=== PATIENT | female | born 1945 | race Caucasian/White ===

== ENCOUNTER 2020-08-24 13:20 | Observation (INO) | payer OTHER, MEDICARE, BC, SELFPAY ==
[2020-08-24] VITALS (12 sets, daily range): BP systolic 141–189; BP diastolic 66–88; PULSE 58–69; RESP 17–18; TEMP 36.2–36.8; O2SAT 98–100
[2020-08-24] MEDS: Acetaminophen 500 MG TAB 1000 MG PO (13:42)
--- NOTE | 2020-08-24 13:45 | DI.CT_ITS ---
EXAM: CT THORACIC SPINE WO CLINICAL HISTORY: fall, thoracic pain. TECHNIQUE: Imaging Protocol: Axial computed tomography images with coronal and sagittal reformatted images were created and reviewed. CONTRAST MATERIAL: None COMPARISON: No exams were available for comparison FINDINGS: There is osteopenia but no obvious acute compression fractures in the thoracic spinal column. There is slight indentation of superior endplate of what is possibly T8. There is no listhesis. Chronic d egenerative disc disease at multiple levels is noted. No osseous lesions identified. No acute compromise of the thoracic spinal column. IMPRESSION: Subtle fracture superior endplate T8. No acute compromise of the thoracic spinal column. Report called by myself to ER provider. RADIATION DOSE DELIVERED: Total DLP DATA REPOSITORY: All CT scans at this facility are submitted to the National Radiology Data Registry (NRDR) Dose Index Registry (DIR) with the [employer] (ACR). RADIATION OPTIMIZATION: All CT scans at this facility use at least one of these dose optimization te chniques: automated exposure control; mA and/or kV adjustment per patient size (includes targeted exa ms where dose is matched to clinical indication); or iterative reconstruction.
--- NOTE | 2020-08-24 14:38 | DI.CT_ITS ---
EXAM: CT LUMBAR SPINE WO CLINICAL HISTORY: fall, lumbar pain. TECHNIQUE: Imaging Protocol: Axial computed tomography images with coronal and sagittal reformatted images were created and reviewed COMPARISON: No exams were available for comparison FINDINGS: Bones: There are no compression fracture or listhesis. Advanced multilevel disc space narrowing is noted including Modic type sub endplate marrow changes at L2-3 level.. There is no evidence of kaelyn poli hematoma. No acute disc herniation evident. IMPRESSION: 1. Chronic degenerative disc disease. No acute fractures. No listhesis. 2. No acute compromise of the lumbar spinal canal. 3. RADIATION DOSE DELIVERED: Total DLP DATA REPOSITORY: All CT scans at this facility are submitted to the National Radiology Data Registry (NRDR) Dose Index Registry (DIR) with the [employer] (ACR). RADIATION OPTIMIZATION: All CT scans at this facility use at least one of these dose optimization te chniques: automated exposure control; mA and/or kV adjustment per patient size (includes targeted exa ms where dose is matched to clinical indication); or iterative reconstruction.
--- NOTE | 2020-08-24 14:50 | ED.GENADUL_ITS ---
Discharge Plan Discharge Details Chief Complaint: Nk/Back Pain Admit Date/Time: 08/24/20 16:36 Admit Provider: Robert Olson Attending Provider: Robert Olson Primary Care Provider: Ashley Keyes ED Provider: Eden Lal Discharge Data Discharge Date/Time-TO BE ENTERED AT DEPARTURE: 08/24/20 18:08 Medical Decision Making No evidence of intra-abdominal pathology, nontender to CVA region and to abdomen Superior endplate fracture to T8, this was where patient with significant pain Secondary to intractable pain I do not feel patient is safe for discharge home She is agreeable to admission at this time I ordered blood work for admission Tylenol and 50 mcg of fentanyl She has neurologically intact Discussed CT findings with Dr. Caal, radiology, superior endplate fracture BPH without additional acute pathology Vascularly intact Differential Diagnosis Differential Diagnosis: Fracture, strain, contusion, abrasion Medical Records Medical records reviewed: Yes I reviewed the patient's medical records. Lab Data Lab results reviewed: Yes I reviewed the patient's lab results. HPI This 75-year-old female presents status post fall at work and then was bending down to replace a plug when she fell backwards. She landed on her buttocks. She denies any head injury or any additional trauma. Denies any changes in bowel or bladder or strength or sensation changes in her lower extremities denies any abdominal pain. Denies loss of consciousness or history of anticoagulation denies history of anticoagulation. Pain exacerbated with walking and movement. General Date/Time Provider Initiated Documentation: 08/24/20 13:27 . Related Data Home Medications Medication Instructions Recorded Confirmed Lactobac. rhamnosus GG-inulin 1 cap PO DAILY 08/24/20 08/24/20 alprazolam 0.5 mg PO HS PRN 08/24/20 08/24/20 aspirin 81 mg PO DAILY 08/24/20 08/24/20 atorvastatin 10 mg PO DAILY 08/24/20 08/24/20 vhlesxunqz-jgvrmieozoaos-zzkf 1 tab PO Q4-5H PRN 08/24/20 08/24/20 cephalexin 500 mg PO HS 08/24/20 08/24/20 green tea extract 375 mg PO DAILY 08/24/20 08/24/20 metoprolol tartrate See Rx Instructions .ROUTE .COMPLEX 08/24/20 08/24/20 omega-3 fatty acids [[place] 3 Fish 500 mg PO DAILY 08/24/20 08/24/20 Oil] ondansetron 8 mg PO QID PRN 08/24/20 08/24/20 potassium chloride [K-Dur] 20 meq PO DAILY 08/24/20 08/24/20 rizatriptan 10 mg PO PRN PRN 08/24/20 08/24/20 turmeric 400 mg PO DAILY 08/24/20 08/24/20 Allergies Allergy/AdvReac Type Severity Reaction Status Date / Time metronidazole [From Flagyl] AdvReac Unverified 08/24/20 13:26 sulfamethoxazole AdvReac Unverified 08/24/20 13:26 [From Bactrim] trimethoprim [From Bactrim] AdvReac Unverified 08/24/20 13:26 General Stated Complaint: Nk/Back Pain MAKENZIE: 3 Review of Systems Narrative: Review of systems obtained x7 aside from where indicated in HPI [facility] Medical History (Updated 08/24/20 @ 22:56 by Robert Olson) Ductal carcinoma in situ (DCIS) of breast Hyperlipidemia Migraine headache SSS (sick sinus syndrome) Surgical History (Updated 08/24/20 @ 22:50 by Robert Olson) S/P bilateral mastectomy Status post placement of cardiac pacemaker Social History Smoking/Tobacco Use Status: Never Smoking risk assessment performed?: Yes Alcohol Intake: never Drug use: Never Substance use type: does not use Do you feel safe at home: Yes Do you feel safe in your relationship?: Yes History History 3 Para 1 Hx # Term Pregnancies 1 Multiple births Hx # Pregnancies Ectopic pregnancies AB induced Hx Number of Living Children 1 AB spontaneous 2 Exam Const General: cooperative and no acute distress Orientation: oriented x3 HENMT Head: normal to inspection Eyes Pupils: PERRL Neck Other: No midline tenderness Chest Chest: normal inspection of the chest Resp Effort & Inspection: normal respiratory effort Auscultation: clear to auscultation bilaterally Cardio Rate: regular rate Rhythm: regular rhythm GI Other: No CVA tenderness or abdominal tenderness on exam No abdominal bruit or pulsatile mass Back/Spine/Pelvis Back: no CVA tenderness Skin General skin exam: no rashes or lesions noted Full body images: 1. Tenderness with palpation, no visible sign of trauma, no crepitus Neuro General: patient alert and patient oriented x3 Other: GCS 15, alert and oriented x4, strength and sensation intact distally to all 4 extremities Course Vital Signs Vital signs: Vital Signs Temperature 36.2 C L 08/24/20 13:25 Pulse 63 08/24/20 13:25 Respiratory Rate 18 08/24/20 13:25 Blood Pressure 189/88 H 08/24/20 13:25 Pulse Oximetry 99 08/24/20 13:25 Temperature 36.2 C L 08/24/20 13:25 Temperature Source Skin 08/24/20 13:25 Pulse 63 08/24/20 13:25 Respiratory Rate 18 08/24/20 13:25 Respiratory Effort Non-Labored 08/24/20 13:28 Blood Pressure 189/88 H 08/24/20 13:25 Blood Pressure Position Supine 08/24/20 13:25 Pulse Oximetry 99 08/24/20 13:25 Oxygen Delivery Method Room Air 08/24/20 13:25 Oxygen Flow Rate 0 08/24/20 13:25 Pain Level 10 08/24/20 13:42
--- NOTE | 2020-08-24 16:37 | W.PM.HP.N ---
Date of service: 08/24/20 Time of Service: 16:37 Assessment and Plan Assessment and plan (1) Closed fracture of T8 vertebra: Status: Acute Assessment and plan: admit for observation, narcotic and NSAID analgesics, muscle relaxants and antiemetics, topical lidocaine patches. consult P.T. in the a.m. for early mobilization. 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 She was at her desk and bent over and tripped and fell landing on her back and buttocks. There was no loss of consciousness. Immediately she was in pain over her mid to lower back and was having trouble ambulating. She was brought to the ER at [facility] where CT scans of her thoracic and lumbar spine were peformed and revealed T8 superior endplate compression fracture. The ER personnel tried to control her pain w/ narcotic analgesics (fentanyl) and NSAIDS (ketorolac) but when she could not ambulate it was decided to admit her overnight for pain control. Review of Systems All systems reviewed & are unremarkable except as noted in HPI and below Constitutional Constitutional: Denies weakness Musculoskeletal Musculoskeletal: Reports as per HPI and Denies tingling Neurologic Neurologic: Denies tingling, Denies paresthesias and Denies weakness [facility] Medical History (Updated 08/24/20 @ 22:56 by Robert Olson) Ductal carcinoma in situ (DCIS) of breast Hyperlipidemia Migraine headache SSS (sick sinus syndrome) Surgical History (Updated 08/24/20 @ 22:50 by Robert Olson) S/P bilateral mastectomy Status post placement of cardiac pacemaker Social History Smoking/Tobacco Use Status: Never Smoking risk assessment performed?: Yes Alcohol Intake: never Drug use: Never Substance use type: does not use Do you feel safe at home: Yes Do you feel safe in your relationship?: Yes History History 3 Para 1 Hx # Term Pregnancies 1 Multiple births Hx # Pregnancies Ectopic pregnancies AB induced Hx Number of Living Children 1 AB spontaneous 2 Meds Home Medications and Allergies Allergies Allergy/AdvReac Type Severity Reaction Status Date / Time metronidazole [From Flagyl] AdvReac Unverified 08/24/20 13:26 sulfamethoxazole AdvReac Unverified 08/24/20 13:26 [From Bactrim] trimethoprim [From Bactrim] AdvReac Unverified 08/24/20 13:26 Home Medications Medication Instructions Recorded Confirmed Type Lactobac. rhamnosus GG-inulin 1 cap PO DAILY 08/24/20 08/24/20 History alprazolam 0.5 mg PO HS PRN 08/24/20 08/24/20 History aspirin 81 mg PO DAILY 08/24/20 08/24/20 History atorvastatin 10 mg PO DAILY 08/24/20 08/24/20 History cawisdgtrk-vyuihnsdqyppy-kldy 1 tab PO Q4-5H PRN 08/24/20 08/24/20 History cephalexin 500 mg PO HS 08/24/20 08/24/20 History green tea extract 375 mg PO DAILY 08/24/20 08/24/20 History metoprolol tartrate See Rx Instructions .ROUTE .COMPLEX 08/24/20 08/24/20 History omega-3 fatty acids [[place] 3 Fish 500 mg PO DAILY 08/24/20 08/24/20 History Oil] ondansetron 8 mg PO QID PRN 08/24/20 08/24/20 History potassium chloride [K-Dur] 20 meq PO DAILY 08/24/20 08/24/20 History rizatriptan 10 mg PO PRN PRN 08/24/20 08/24/20 History turmeric 400 mg PO DAILY 08/24/20 08/24/20 History Exam Narrative Exam Narrative: Elderly female lying on a guerney in the ER. A&Ox3, comfortable as long as she is not moving around HEENT: unremarkable Neck: supple, nontender, normal ROM Lungs: clear Heart: RRR w/o murmur, rub or gallops Abd: soft, nontender, normal bowel sounds, no organomegaly Extremities: normal ROM and strength. normal sensation to light touch, normal DTR Spine: tender over lower thoracic and upper lumbar areas including paralumbar muscles; cervical spine is nontender Results Labs Result diagrams: 08/24/20 16:53 08/24/20 16:53 Last Vital Signs Temp 36.2 C L 08/24/20 13:25 Pulse 63 08/24/20 13:25 Resp 18 08/24/20 13:25 BP 189/88 H 08/24/20 13:25 Pulse Ox 99 08/24/20 13:25 COVID-19 Screening Have you, or household traveled for leisure in last 14 days?: No Had IN PERSON contact w/suspected or confirmed C-19 person: No
[2020-08-24 17:03] LABS: Abs Immature Grans 0.04 10^3/uL (0.0-0.06); Absolute Basophil Count 0.03 10^3/uL (0.0-0.2); Absolute Eosinophil Count 0.05 10^3/uL (0.0-0.7); Absolute Lymphocyte Count 1.32 10^3/uL (1.2-3.4); Absolute Monocyte Count 0.39 10^3/uL (0.1-0.8); Absolute Neutrophil Count 6.09 10^3/uL (1.2-6.7); Basophils % 0.4; Eosinophils % 0.6; HCT 42.1 % (36.0-46.0); HGB 14.4 g/dL (11.2-15.7); Immature Grans % 0.5; Lymphocytes % 16.7; MCHC 34.2 % (32.0-36.0); MCV 90.7 fL (80-95); Monocytes % 4.9; Neutrophils % 76.9; Nucleated RBC 0 %; Platelet Count 218 10^3/uL (130-400); RBC 4.64 10^6/uL (3.93-5.22); RDW-SD 39.8 fL; WBC 7.92 10^3/uL (4.4-10.8)
[2020-08-24] MEDS: traMADol 50 MG TAB PO ×2 (17:08→21:56)
[2020-08-24 17:09] LABS: Source Nasal/Nares
[2020-08-24 17:10] LABS: Anion Gap 9.3 mmol/L (3-11); BUN 12 mg/dL (7-18); CO2 26.7 mmol/L (21.0-32.0); CREATININE 0.6 mg/dL (0.55-1.02); Chloride 105 mmol/L (98-107); Glucose 91 mg/dL (74-106); Sodium 141 mmol/L (136-145)
[2020-08-24 17:18] LABS: Bilirubin Negative (Negative); Blood Negative (Negative); Clarity Clear (Clear); Glucose Negative (Negative); Ketones 40 mg/dL (Negative); Leukocyte Esterase Negative (Negative); Nitrite Negative (Negative); Urobilinogen 0.2 EU/dL (Up TO 0.2)
[2020-08-24] MEDS: Ketorolac 15 MG/ML VIAL IVP (18:17)
[2020-08-24] MEDS: Normal Saline Flush 10 ML SYR IVP (18:17)
[2020-08-24] MEDS: Ondansetron 4 MG/2 ML VIAL IVP (18:23)
[2020-08-24] MEDS: Calcitonin-Salmon, Synthetic 3.7 ML BTL NS (18:47)
[2020-08-24] MEDS: Lidocaine 5% Patch 2 PATCH TP (19:58)
[2020-08-24] MEDS: Metoprolol 50 MG TAB PO (20:57)
[2020-08-24 21:57] LABS: COVID-19 PCR Negative (Negative)
[2020-08-25] MEDS: Methocarbamol 750 MG TAB PO ×4 (02:22→21:28)
[2020-08-25] MEDS: Ketorolac 15 MG/ML VIAL IVP ×4 (02:22→21:25)
[2020-08-25] MEDS: Normal Saline Flush 10 ML SYR IVP ×3 (02:22→21:31)
[2020-08-25 07:25] VITALS: BP 135/74; PULSE 61; RESP 18; TEMP 36; O2SAT 96
[2020-08-25] MEDS: Calcitonin-Salmon, Synthetic 3.7 ML BTL NS (08:29)
[2020-08-25] MEDS: Potassium Chloride 20 MEQ TABCR PO (08:29)
[2020-08-25] MEDS: Aspirin 81 MG CHEW PO (08:30)
[2020-08-25] MEDS: Metoprolol 50 MG TAB PO ×2 (08:30→21:28)
[2020-08-25] MEDS: Cholecalciferol (Vitamin D3) 1,000 UNIT TAB 2000 UNITS PO (08:30)
--- NOTE | 2020-08-25 09:02 | PDOC.CMIN ---
- If Service Date Differs Date of service: 08/25/20 Time of Service: 09:02 Care Management Initial Assess REASON FOR HOSPITALIZATION:: Closed fracture of T8 vertebra PAST MEDICAL HISTORY/PAST SURGICAL HISTORY:: Medical History (Updated 08/24/20 @ 22:56 by Robert Olson). Ductal carcinoma in situ (DCIS) of breast. Hyperlipidemia. Migraine headache. SSS (sick sinus syndrome). Surgical History (Updated 08/24/20 @ 22:50 by Robert Olson). S/P bilateral mastectomy. Status post placement of cardiac pacemaker PREVIOUS FUNCTIONAL STATUS/SOCIAL/FAMILY SUPPORTS:: Eleanor lives alone in a town house in [place] 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 Eleanor has one daughter and one grandson who is a paraplegic. She is independent and remains active, skiing in winter and biking in warmwer weather. CURRENT FUNCTIONAL STATUS:: Eleanor was sitting up in bed when CM met with her. She was pleasant and engaged readily with CM. Eleanor shared that she had been working in the [facility] of [employer] yesterday when she lost her balance and fell. She stated that she feels very fortunate that she did not fracture a hip or sustain a more serious injury. Eleanor verbalized that she does not feel that she will require any services at discharge, however, her needs will be evaluated on an ongoing basis. ADVANCE DIRECTIVES:: none on file Has patient been provided with info about the portal/API?: Yes Did the patient sign up for the portal?: No CODE STATUS:: Full Code INSURANCE COVERAGE / FINANCIAL ISSUES:: Medicare. BC BS CURRENT HOME/COMMUNITY SERVICES/EQUIPMENT:: none PRIMARY CARE PHYSICIAN:: Ashley Keyes POTENTIAL DISCHARGE NEEDS:: Follow up with PCP and discharge plan of care PATIENT/FAMILY EDUCATION NEEDS:: Review of discharge instructions and follow up plan, limitations, Ask Me Three TRANSPORTATION:: via private vehicle with family PLAN:: Eleanor will likely be discharged home with no new services. She will followup with her PCP and discharge plan of care and transport with family. CM will continue to support Eleanor and assess for discharge planning needs.
--- NOTE | 2020-08-25 10:03 | PT.INIE ---
Date of service: 08/25/20 Time of Service: 10:03 PT Notes Visit Reasons: BACK PAIN; T8 FRACTURE Physical Therapy Inpatient Initial Evaluation Date: 08/25/2020 Referring Doctor: Robert Olson MD PT Orders: PT CONSULT: Safety consult for D/C Precautions: Fall. Standard. Activity as tolerated. Patient Profile/Admitting Diagnosis: Eleanor is a 75-year-old female who presented to the ED on 08/24/2020 with back pain sustained from a mechanical fall while at work. She is diagnosed with subtle superior endplate fracture of the 8th thoracic vertebra with referral to physical therapy for safety assessment for discharge. PMHX: Medical History (Updated 08/24/20 @ 22:56 by Robert Olson) Ductal carcinoma in situ (DCIS) of breast Hyperlipidemia Migraine headache SSS (sick sinus syndrome) Surgical History (Updated 08/24/20 @ 22:50 by Robert Olson) S/P bilateral mastectomy Status post placement of cardiac pacemaker Social History/Home Situation: Lives alone in a private home in [place], [place] with one step to enter. She has another flight of steps to the second floor of her house where her bedroom and bathroom are. However, if she needs to she can stay in the guest room on the first floor where she also has a bathroom. 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 Equipment Owned/DME: None Subjective: Eleanor considers herself athletic and believes that the recent fall she had was purely mechanical. She reported being lightheaded earlier when she went to the bathroom, she states that she has a tendency for her blood pressure to go down. She complains of 6/10 pain in the left lower lumbar and left hip area that is aggravated with movement. She explains that when she fell her L hip/gluteal areas were mostly the part she hit. She reports increase in pain with bending. Objective: General Observation: Supine in bed with HOB elevated about 45 degrees. IV access in the right UE. Anti-thromboembolic pumps in bilateral legs. Mental Status: Alert and oriented x4 Pain: 6/10 in left lumbar/pelvic area ROM: Right Upper Extremity: Shoulder Flexion WFL. Shoulder abduction WFL. Elbow flexion WFL. Wrist flexion WFL. Opening and closing of hand WFL. Left Upper Extremity: Shoulder Flexion WFL. Shoulder abduction WFL. Elbow flexion WFL. Wrist flexion WFL. Opening and closing of hand WFL. Right Lower Extremity: Hip flexion WFL. Hip abduction WFL. Knee flexion WFL. Ankle dorsiflexion WFL. Ankle plantarflexion WFL. Left Lower Extremity: Hip flexion allows patient to sit on edge of bed but with pain complaint of 6/10. Hip abduction allows patient to slide right thigh onto the edge of bed about 45 degrees but with 6/10 pain in the right hip and lumbar area. Knee flexion WFL. Ankle dorsiflexion WFL. Ankle plantarflexion WFL. Strength: Right Upper Extremity: Shoulder flexors 5/5. Shoulder abductors 5/5. Elbow flexors 5/5. Elbow extensors 5/5. Residency Director strong. Left Upper Extremity: Shoulder flexors 5/5. Shoulder abductors 5/5. Elbow flexors 5/5. Elbow extensors 5/5. Residency Director strong. Right Lower Extremity: Hip flexors 5/5. Hip abductors 5/5. Knee flexors 5/5. Knee extensors 5/5. Ankle dorsiflexors 5/5. Ankle plantarflexors 5/5. Left Lower Extremity: Hip flexors 3-/5. Hip abductors 3-/5. Knee flexors 4-/5. Knee extensors 4-/5. Ankle dorsiflexors 5/5. Ankle plantarflexors 5/5. Sensation: Intact as to pain and pressure on bilateral lower extremities. Bed Mobility/Transfers: Rolling standby assist Supine to sit contact-guard assist with HOB at 30 degrees Sit to supine standby assist with pain reported 6/10 pain mostly on the left lumbar area Sit to stand standby assist Stand to sit standby assist Bed to chair standby assist Chair to bed standby assist Gait: Guided patient through level surface ambulation of 40 feet using front wheeled walker with full weight bearing requiring only standby assist with complaint of 6/10 pain in the left lumbar/pelvic area resulting to significantly decreased gait speed. Antalgic gait. Steps slow and cautious. Balance: Static Sitting: Normal Dynamic Sitting: Normal Static Standing: Fair Dynamic Standing: Fair Special Tests: Mobility Limitations Standardized Measure [facility] AM-PAC 6 clicks Basic Mobility Inpatient Short Form: Raw Score: 18 CMS Score: 47% deficit Informed Consent/Education: Patient instructed in purpose of PT consult and plan of care. Assessment: Eleanor requires the use of a front wheeled walker to increase tolerance to mobility ADL performance and reduce fall risk, pain in the left lumbar and hip area and due to recent fall, feelings of weakness, and increased risk for falls due to admitting diagnoses. With the use of a front wheeled walker she may be able to manage at home alone but she will require assistance with bathing, dressing, and drop clipper. Will coordinate with hospitalist regarding the benefit of a TLSO brace in order to minimize pain complaint and allow for more independent performance of transfers and ambulation. Patient presents with clinical signs and symptoms consistent with current/admitting diagnoses that have resulted to mobility limitations, gait instability, generalized weakness, and impairment of motor control as demonstrated by the following impairment level findings: 1. Decreased strength to right LE major muscle groups 2. Impaired sitting/standing balance 3. Impaired activity tolerance 4. Limitation of joint range of motion in right hip and trunk Impairments are contributing to the following functional limitations: 1. Increased dependence with transfers 2. Inability to safely ambulate without assistive device 3. Increase completion time for mobility ADL performance 4. Increased fall risk 5. Inability to negotiate steps alone safely Patient is assessed as a 22653 moderate complexity based on the following: History: 75-year-old female with impairment level findings, functional limitations, and past medical history as indicated above Examination: Demonstrable impairment in strength, balance, and mobility level with underlying impairments and functional limitations as documented above Presentation: Evolving Decision Makin moderate complexity Goals: Goals X1 week 1. Supine-Sit independent 2. Sit-Supine independent 3. Sit-Stand independent 4. Stand-Sit independent 5. Bed-Chair independent 6. Chair-Bed independent 7. Independent gait on level surface with use of front wheeled walker for at least 300 feet without report of pain nor dyspnea 8. Independent stair negotiation while holding onto bilateral rails for at least 10 steps without report of pain nor dyspnea 9. Good static and dynamic standing balance/tolerance Plan of Care/Treatment Plan: 1-2x/day, 7 days/week x 1 week. Plan of care has been reviewed with the APPLIANCE INSTALLER providing the service under Physical Therapy direction. Initiate Physical Therapy intervention for strengthening, bed mobility, transfers, gait, stairs, balance training, use of assistive device. DISCHARGE RECOMMENDATIONS: Short-term rehab stay versus home health PT/OT. TREATMENT CODE/TIME: 79669 x25 minutes, 39663 x 14 minutes beginning at 10:03 AM. Thank you for the opportunity to participate in the care of this patient. Luli Gaviria PT, DPT, CLT [facility] [place], [place]
--- NOTE | 2020-08-25 13:44 | CHAPLAIN ---
Eleanor works for [employer], in the [place] office but was here in [facility] yesterday to meet some clients she'll be working and wanted to meet in person. While in the [facility] office, Eleanor fell and suffered a T8 fracture. She is uncomfortable at times, but the pains med help, she said. Eleanor has been in touch with her daughter in [place] and hopes to go home soon. Some [facility] coworkers have offered to drive her back to [place]. Eleanor said she is usually very active and is worried about this injury slowing her down and keeping her from biking and other activities she likes.
--- NOTE | 2020-08-25 14:00 | PT.INTREAT ---
Date of service: 08/25/20 Time of Service: 15:29 PT Notes Visit Reasons: BACK PAIN; T8 FRACTURE Inpatient Physical Therapy Treatment Note [facility] Date: 08/25/2020 PRECAUTIONS: Fall, back pain SUBJECTIVE: Eleanor reports that she is having LBP with any position or movements out of bed. She is willing to try the TLSO brace. At the end of the PT session, patient reports that she is having anxiety and feels trapped in the brace, and would like to take it off and lie down. OBJECTIVE: Patient education on donning/doffing TLSO brace, as well as making adjustments. PAIN: Patient c/o LBP with movement and transfers, although indicates that it is improved while wearing TLSO brace. BED MOBILITY/TRANSFERS Supine-sit: SBA Sit-supine: SBA Sit-stand: SBA Stand-sit: SBA Bed-Chair: SBA Chair-bed: SBA GAIT Assistive Device: FWW Weight bearing: Full Assist: SBA Distance: 40' ASSESSMENT: Patient was limited by pain and anxiety this afternoon. She was able to tolerate gait training with FWW support and reports improvement in pain symptoms with TLSO in place. PLAN: Continue with gait and transfer training as well as continued patient education in use of brace and donning/doffing techniques. TREATMENT CODE/TIME: 25 minutes; 54280 x2 (14:00)
[2020-08-25] MEDS: Ondansetron 4 MG/2 ML VIAL IVP (15:28)
[2020-08-25 15:34] VITALS: BP 169/62; PULSE 60; RESP 17; TEMP 36.7; O2SAT 98
--- NOTE | 2020-08-25 16:02 | PGE_ITS ---
Date of Service Date of service: 08/25/20 Time of Service: 16:02 Assessment and Plan Assessment and plan (1) Closed fracture of T8 vertebra: Status: Acute Assessment and plan: continue observation status, however if she does not improve in her mobility by tomorrow morning then she will have to be made an acute inpatient. Hopefully w/ the changes I made from prn muscle relaxers and prn NSAID's to scheduled dosing, she will improve. I also had pharmacy give her Pamidronate. Apparently this caused her nausea but hopefully will help w/ her spine fracture and osteoporosis. I also have put her on miacalcin spray. Qualifiers: Encounter type: initial encounter Fracture morphology: wedge compression Qualified Code(s): S22.060A - Wedge compression fracture of T7-T8 vertebra, initial encounter for closed fracture Subjective Subjective Interval history since last seen: Patient is very anxious, tearful this afternoon. She has been in pain but has been reluctant to call the nurses for pain medications. P.T. tried to fit her w/ TLSO but this was extremely uncomfortable for her. I have changed her pain medications to scheduled for her Skelaxin and her Toradol but will keep her Tramadol on a prn basis. She says that the lidocaine patches really helped last night and this will be renewed tonight. She is worried how she is going to cope when she goes home and is worried about how she is going to get home to [place] and what she will do when she is home if she has severe pain. She is also worried about developing a DVT d/t her decr. mobility. I initially did not put her enoxaparin d/t using ketorolac and thought that she would not become bed bound, however, I have added the enoxaparin to allay her concerns for DVT although she has SCD's on. Exam Narrative Exam Narrative: Tearfuly elderly female lying in bed on her left side w/ the room darkened and the shades pulled down, Back is tender mostly over the lower parathoracic and paralumbar muscles. Negative SLR. Objective Last Vital Signs Temp 36.7 C 08/25/20 15:34 Pulse 60 08/25/20 15:34 Resp 17 08/25/20 15:34 BP 169/62 H 08/25/20 15:34 Pulse Ox 98 08/25/20 15:34 Laboratory Results - last 24 hr 08/24/20 08/24/20 08/24/20 16:53 16:53 17:05 WBC 7.92 RBC 4.64 Hgb 14.4 Hct 42.1 MCV 90.7 MCH 31.0 MCHC 34.2 RDW 12.0 Plt Count 218 MPV 10.0 Immature Gran % 0.5 Neutrophils % 76.9 Lymphocytes % 16.7 Monocytes % 4.9 Eosinophils % 0.6 Basophils % 0.4 Nucleated RBC % 0 Absolute Neutrophils 6.09 Absolute Lymphocytes 1.32 Absolute Monocytes 0.39 Absolute Eosinophils 0.05 Absolute Basophils 0.03 Sodium 141 Potassium 4.0 Chloride 105 Carbon Dioxide 26.7 Anion Gap 9.3 BUN 12 Creatinine 0.6 Estimated GFR/1.73 m2 >= 60.00 Glucose 91 Calcium 9.0 Urine Color Urine Clarity Urine pH Ur Specific [place] Urine Protein Urine Ketones Urine Blood Urine Nitrite Urine Bilirubin Urine Urobilinogen Ur Leukocyte Esterase Urine Glucose COVID-19 Source Nasal/nares SARS-CoV-2 (PCR) Negative 08/24/20 17:11 WBC RBC Hgb Hct MCV MCH MCHC RDW Plt Count MPV Immature Gran % Neutrophils % Lymphocytes % Monocytes % Eosinophils % Basophils % Nucleated RBC % Absolute Neutrophils Absolute Lymphocytes Absolute Monocytes Absolute Eosinophils Absolute Basophils Sodium Potassium Chloride Carbon Dioxide Anion Gap BUN Creatinine Estimated GFR/1.73 m2 Glucose Calcium Urine Color Yellow Urine Clarity Clear Urine pH 6.0 Ur Specific [place] 1.020 Urine Protein Negative Urine Ketones 40 H Urine Blood Negative Urine Nitrite Negative Urine Bilirubin Negative Urine Urobilinogen 0.2 Ur Leukocyte Esterase Negative Urine Glucose Negative COVID-19 Source SARS-CoV-2 (PCR)
[2020-08-25] MEDS: Enoxaparin 40 MG/0.4 ML SYR SC (17:15)
[2020-08-25] MEDS: Atorvastatin 10 MG TAB PO (17:15)
[2020-08-25 21:05] VITALS: BP 169/83; PULSE 65; RESP 17; TEMP 36.2; O2SAT 98
[2020-08-25] MEDS: Lidocaine 5% Patch 2 PATCH TP (21:27)
[2020-08-25] MEDS: Calcium Carbonate 1.5 GM TAB PO (21:28)
[2020-08-25] MEDS: Zolpidem 6.25 MG TABCR PO (21:28)
[2020-08-25] MEDS: Pantoprazole 40 MG TABCR PO (21:28)
[2020-08-25] MEDS: Cephalexin 500 MG CAP PO (21:30)
[2020-08-25] MEDS: Docusate Sodium 100 MG CAP PO (21:30)
[2020-08-26] MEDS: Ketorolac 15 MG/ML VIAL IVP ×4 (03:58→22:07)
[2020-08-26] MEDS: Normal Saline Flush 10 ML SYR IVP ×5 (03:59→22:10)
[2020-08-26 07:05] LABS: Anion Gap 7.1 mmol/L (3-11); BUN 17 mg/dL (7-18); CO2 26.9 mmol/L (21.0-32.0); CREATININE 0.6 mg/dL (0.55-1.02); Calcium 8.6 mg/dL (8.5-10.1); Chloride 106 mmol/L (98-107); Glucose 83 mg/dL (74-106); Potassium 4.3 mmol/L (3.5-5.1); Sodium 140 mmol/L (136-145)
[2020-08-26 07:48] VITALS: BP 148/89; PULSE 100; RESP 17; TEMP 36.5; O2SAT 97
[2020-08-26] MEDS: Calcium Carbonate 1.5 GM TAB PO ×2 (08:19→20:26)
[2020-08-26] MEDS: Potassium Chloride 20 MEQ TABCR PO (08:19)
[2020-08-26] MEDS: Aspirin E.C. 81 MG TABEC PO (08:19)
[2020-08-26] MEDS: Cholecalciferol (Vitamin D3) 1,000 UNIT TAB 2000 UNITS PO (08:19)
[2020-08-26] MEDS: Atorvastatin 10 MG TAB PO (08:20)
[2020-08-26] MEDS: Docusate Sodium 100 MG CAP PO ×2 (08:20→14:21)
[2020-08-26] MEDS: Metoprolol 50 MG TAB PO ×2 (08:20→22:06)
[2020-08-26] MEDS: Omega-3 Fatty Acids 1000 MG CAP PO (08:20)
[2020-08-26] MEDS: Calcitonin-Salmon, Synthetic 3.7 ML BTL NS (08:44)
[2020-08-26] MEDS: traMADol 50 MG TAB PO (08:50)
[2020-08-26 10:08] VITALS: PULSE 62
[2020-08-26] MEDS: Methocarbamol 750 MG TAB PO ×3 (10:11→22:07)
--- NOTE | 2020-08-26 13:33 | PDOC.CMPRO ---
- If Service Date Differs Date of service: 08/26/20 Time of Service: 13:33 Care Management Progress Note S/O: Eleanor was sitting up in bed when CM met with her. She was pleasant and receptive to conversation. Eleanor shared that she would be staying overnight and going home in the morning. She does not have transportation today and feels she needs another day to get her pain under control and to feel safer with ambulation and transfers as she lives alone and has no help available. Cm will continue to follow. A: Eleanor is a 75 year old woman admitted on 08/24/20 with a fracture of T-8 P:Eleanor will likely be discharged home with no new services. She will followup with her PCP and discharge plan of care and transport with a friend. CM will continue to support Eleanor and assess for discharge planning needs.
--- NOTE | 2020-08-26 13:42 | PT.INTREAT ---
Date of service: 08/26/20 Time of Service: 11:20 PT Notes Visit Reasons: BACK PAIN; T8 FRACTURE Inpatient Physical Therapy Treatment Note [facility] Date: 08/26/2020 PRECAUTIONS: Fall, back pain SUBJECTIVE: Eleanor reports that she is feeling much better today. She has found the TLSO brace to be helpful, and helps with pain management. OBJECTIVE: Continued patient education on donning/doffing TLSO brace, as well as making adjustments. PAIN: No c/o pain BED MOBILITY/TRANSFERS Supine-sit: I Sit-stand: I Stand-sit: I Bed-Chair: I Chair-bed: I GAIT Assistive Device: FWW Weight bearing: Full Assist: S Distance: 100' STAIRS: Up/down 3x4 and 2x6 using B rails and a step-over pattern, independently. ASSESSMENT: Patient demonstrates an improvement with mobility with transfers and gait today versus yesterday. She was able to tolerate a progression in gait distance and demonstrates independence with stair negotiation, transfers and bed mobility at this time. PLAN: Discharge to home with TLSO brace for comfort and support, when medically ready, per MD. TREATMENT CODE/TIME: 30 minutes; 02088, [id number] (11:20)
[2020-08-26] MEDS: Milk of Magnesia 30 ML CUP PO (14:23)
[2020-08-26 14:55] VITALS: BP 145/76; PULSE 64; RESP 16; TEMP 36.5; O2SAT 97
--- NOTE | 2020-08-26 15:28 | PGE_ITS ---
Date of Service Date of service: 08/26/20 Time of Service: 09:00 Assessment and Plan Assessment and plan (1) Closed fracture of T8 vertebra: Status: Acute Assessment and plan: cont. Robaxin 750 mg tid, ketorolac 15 mg IV q6h (only getting total of 6 doses to limit impact on her renal fxn), cont. lidoderm patches; use tramadol prn. Qualifiers: Encounter type: initial encounter Fracture morphology: wedge compression Qualified Code(s): S22.060A - Wedge compression fracture of T7-T8 vertebra, initial encounter for closed fracture Subjective Subjective Interval history since last seen: Back pain is better controlled. I visited the patient this a.m. after she had taken herself to the bathroom using a FWW. Her balance appears to be good. Her pain is improving although still present along her left mid to lower back. No radiating pain in the legs. She received pamidronate injection yesterday. She is on miacalcin nasal spray along w/ vitamin D and calcium citrate. She is receiving lidoderm patches and scheduled doses of Skelaxin and toradol. Exam Narrative Exam Narrative: Thin elderly female who appears happier today. While she would like to go home she indicated that she has no way to get home today to [place] but will have a ride in the morning. She indicated that she slept well and she is more cheerful today Back is less tender to palpation. Only mild tenderness over her right mid to lower paraspinal areas (lower thoracic and upper lumbar). Patient is seen walking w/ FWW independently. Objective Last Vital Signs Temp 36.5 C 08/26/20 07:48 Pulse 62 08/26/20 10:08 Resp 17 08/26/20 07:48 BP 148/89 H 08/26/20 07:48 Pulse Ox 97 08/26/20 07:48 Laboratory Results - last 24 hr 08/26/20 06:15 Sodium 140 Potassium 4.3 Chloride 106 Carbon Dioxide 26.9 Anion Gap 7.1 BUN 17 Creatinine 0.6 Estimated GFR/1.73 m2 >= 60.00 Glucose 83 Calcium 8.6
--- NOTE | 2020-08-26 15:59 | PHACLINREV_ITS ---
Pharmacy Admission Review - Admission Clinical Review (Last Updated 08/24/20 @ 22:50 by Robert Olson) Closed fracture of T8 vertebra (Acute) metronidazole [From Flagyl] Adverse Reaction (Unverified 08/24/20 13:26) sulfamethoxazole [From Bactrim] Adverse Reaction (Unverified 08/24/20 13:26) trimethoprim [From Bactrim] Adverse Reaction (Unverified 08/24/20 13:26) Height 5 ft 3 in Weight 66.8 kg SPINE T8 FRACTURE S/P FALL - Comments Comments/Follow Ups: Have adjusted meds for pain control (Scheduled Ketorolac, Methocarbamol, Lidoderm patches)...and as needed meds Tramadol. Slept better with Ambien, ambulating with walker, Care management trying to help her get a comfortable ride home, her car is parked here, as her fall was while working in the area. May not be able to drive herself home. Will be discharged with a TLSO brace - Renal Dosing Renal Dosing: BUN 17 mg/dL (7-18) 08/26/20 06:15 Creatinine 0.6 mg/dL (0.55-1.02) 08/26/20 06:15 Medications needing adjustments: Reviewed (CrCl~49ml/min) - Anticoagulation Anticoagulation: Hgb 14.4 g/dL (11.2-15.7) 08/24/20 16:53 Hct 42.1 % (36.0-46.0) 08/24/20 16:53 Plt Count 218 10^3/uL (130-400) 08/24/20 16:53 Creatinine 0.6 mg/dL (0.55-1.02) 08/26/20 06:15 DVT Prohphylaxis: Reviewed Medications: Enoxaparin (Lovenox 40mg) - Opiate Usage Evaluate Pain Scale/Pains Meds: Reviewed (Pain 3/10 (Tramadol-only using ~one dose/day)) Scheduled Bowel Reg ordered if on Opiates?: Yes (Docusate ALEXA,others prn) - Relevant Labs Sodium 140 mmol/L (136-145) 08/26/20 06:15 Potassium 4.3 mmol/L (3.5-5.1) 08/26/20 06:15 Chloride 106 mmol/L (98-107) 08/26/20 06:15 Electrolytes, C-Reactive P, ESR: Reviewed - DM Control DM Control: Glucose 83 mg/dL (74-106) 08/26/20 06:15 Insulin Dosing: N/A - Heart Failure/CT EF%, TAMMIE's, B-Blockers, Diuretics: Reviewed (Metoprolol) - BP Control BP Control: Blood Pressure 145/76 Blood Pressure 148/89 If elevated: Reviewed - IV to PO Switch IV Medications: Reviewed (Toradol 15mg IV q6h, Zofran IV (also has ODT Zofran)) - Home Meds Home Med List reviewed: Reviewed (Not sure why patient takes maintenance Cephalexin 500mg daily) Relevent Home Meds Not ordered & why?: Ugo Coroneliptgisell (patient lives in [place], [place]...external med history not avail) - Comments Comments/Follow Ups: Patient has pacemaker for sick sinus syndrome
[2020-08-26] MEDS: Enoxaparin 40 MG/0.4 ML SYR SC (16:26)
[2020-08-26] MEDS: Lidocaine 5% Patch 2 PATCH TP (20:27)
[2020-08-26 22:01] VITALS: BP 153/78; PULSE 66; RESP 17; TEMP 36.4; O2SAT 97
[2020-08-26] MEDS: Zolpidem 6.25 MG TABCR PO (22:06)
[2020-08-26] MEDS: Cephalexin 500 MG CAP PO (22:06)
[2020-08-26] MEDS: Pantoprazole 40 MG TABCR PO (22:07)
[2020-08-26 23:21] VITALS: BP 131/74; PULSE 60; RESP 18; TEMP 36.4; O2SAT 95
[2020-08-27 07:25] LABS: Platelet Count 194 10^3/uL (130-400)
[2020-08-27 07:40] VITALS: BP 158/80; PULSE 61; RESP 17; TEMP 36.9; O2SAT 96
[2020-08-27 07:45] LABS: Anion Gap 6.8 mmol/L (3-11); BUN 19 mg/dL (7-18); CO2 28.2 mmol/L (21.0-32.0); CREATININE 0.7 mg/dL (0.55-1.02); Calcium 8.5 mg/dL (8.5-10.1); Chloride 102 mmol/L (98-107); Glucose 79 mg/dL (74-106); Potassium 4.1 mmol/L (3.5-5.1); Sodium 137 mmol/L (136-145)
[2020-08-27] MEDS: Potassium Chloride 20 MEQ TABCR PO (08:03)
[2020-08-27] MEDS: Cholecalciferol (Vitamin D3) 1,000 UNIT TAB 2000 UNITS PO (08:03)
[2020-08-27] MEDS: Omega-3 Fatty Acids 1000 MG CAP PO (08:04)
[2020-08-27] MEDS: Aspirin E.C. 81 MG TABEC PO (08:04)
[2020-08-27] MEDS: Metoprolol 50 MG TAB PO (08:04)
[2020-08-27] MEDS: Calcium Carbonate 1.5 GM TAB PO (08:04)
[2020-08-27] MEDS: Atorvastatin 10 MG TAB PO (08:04)
[2020-08-27] MEDS: Calcitonin-Salmon, Synthetic 3.7 ML BTL NS (08:08)
--- NOTE | 2020-08-27 08:48 | W.PM.DS.N ---
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 She had no loss of consciousness. She immediately had pain over mid to lower back and had trouble ambulating. She was brought to the emergency department at [facility] where CT scans of her thoracic and lumbar spine were performed and revealed a T8 superior endplate compression fracture. Because her pain cannot be adequately controlled and she was unable to ambulate due to the pain she was admitted to the hospital on observation status for pain control. In the emergency department she was treated with fentanyl and ketorolac. After admission to the hospital she was treated with calcitonin nasal spray, Robaxin muscle relaxant, infusion of Pamidronate, Tramadol for pain, lidocaine patches. P.T. was consulted and she was fitted for TLSO brace and FWW walker. She was given ambien CR for sleep. After couple days of therapy and analgesics and anti-inflammatories she did well and was ambulating independently w/ use of FWW. She was started on vitamin D and calcium carbonate and should continue on this along w/ the miacalcin nasal spray for osteoporosis. Home Meds and New Rx's Prescriptions: New tramadol 50 mg Tablet 50 mg PO Q4H PRN PRNQty: 20 RF: 0 calcium carbonate 600 mg calcium (1,500 mg) Tablet 600 mg PO BID Qty: 60 RF: 0 calcitonin (salmon) 200 unit/actuation [place],Non-Aerosol 1 spray NS DAILY Qty: 3.7 RF: 0 lidocaine [Lidoderm] 5 % Adhesive Patch,Medicated 2 patch topical Q24H Qty: 30 RF: 0 cholecalciferol (vitamin D3) 25 mcg (1,000 unit) Tablet 2,000 unit PO DAILY Qty: 60 RF: 0 methocarbamol [Robaxin-750] 750 mg tablet 750 mg PO Q8H PRN (Reason: back pain) Qty: 21 RF: 0 Continued atorvastatin 10 mg Tablet 10 mg PO DAILY RF: 0 sjdncscfkq-zmsuczgpspyiw-wnvm 50-325-40 mg Tablet 1 tab PO Q4-5H PRN (Reason: Pain) RF: 0 ondansetron 8 mg Tablet,Disintegrating 8 mg PO QID PRNRF: 0 aspirin 81 mg Capsule,Delayed Release(Dr/Ec) 81 mg PO DAILY RF: 0 alprazolam 0.5 mg Tablet 0.5 mg PO HS PRNRF: 0 potassium chloride 20 mEq Tablet,Er Particles/Crystals 20 meq PO DAILY RF: 0 rizatriptan 10 mg Tablet,Disintegrating 10 mg PO PRN PRNRF: 0 cephalexin 500 mg Capsule 500 mg PO HS RF: 0 omega-3 fatty acids Capsule 500 mg PO DAILY RF: 0 metoprolol tartrate 25 mg Tablet See Rx Instructions .ROUTE .COMPLEX RF: 0 green tea extract 375 mg Capsule 375 mg PO DAILY RF: 0 Lactobac. rhamnosus GG-inulin 10 billion cell -200 mg Capsule 1 cap PO DAILY RF: 0 turmeric 400 mg Capsule 400 mg PO DAILY RF: 0 Discharge Instructions Instructions: Vertebral Compression Fracture (DC) Referrals: Ashley Keyes [Primary Care Provider] - (call the office for follow up in the next week) Activity:: Activity as Tolerated Equipment/Supplies:: Walker Diet:: Low Sodium DS: Summary Time Spent with Patient providing and/or coordinating discharge services: Less than 30 minutes Status at Discharge Functional status at discharge: uses cane/walker Overall status at discharge: patient is progressing back to baseline Mental Status: mental status grossly normal Speech and Movement: speech and movement normal Mood: congruent mood Affect: normal affect Exam Narrative Exam Narrative: Thin elderly female who appears happier today. While she would like to go home she indicated that she has no way to get home today to [place] but will have a ride in the morning. She indicated that she slept well and she is more cheerful today Back is less tender to palpation. Only mild tenderness over her right mid to lower paraspinal areas (lower thoracic and upper lumbar). Patient is seen walking w/ FWW independently. Psych Mental Status: mental status grossly normal Speech and Movement: speech and movement normal Mood: congruent mood Affect: normal affect DS: Data Vitals/I&O Vitals and I&O: Vital Signs Temperature 36.9 C 08/27/20 07:40 Temperature Source Tympanic 08/27/20 07:40 Pulse 61 08/27/20 07:40 Pulse Rhythm Regular 08/27/20 02:33 Respiratory Rate 17 08/27/20 07:40 Respiratory Effort Non-Labored 08/27/20 02:33 Respiratory Depth Normal 08/27/20 02:33 Respiratory Pattern Normal 08/27/20 02:33 Blood Pressure 158/80 H 08/27/20 07:40 Blood Pressure Mean 91 08/24/20 13:46 Blood Pressure Position Supine 08/24/20 13:25 Pulse Oximetry 96 08/27/20 07:40 Oxygen Delivery Method Room Air 08/27/20 07:40 Oxygen Flow Rate 0 08/27/20 07:40 Pain Level 3 08/27/20 07:40 Comment 08/26/20 22:01 Intake & Output 08/26/20 08/26/20 08/27/20 11:59 23:59 11:59 Intake Total 790 / 1820 1030 / 1820 Output Total 300 / 1000 700 / 1000 Balance 490 / 820 330 / 820 Weight 66.8 kg 67.2 kg Intake: Oral 790 / 1820 1030 / 1820 Output: Urine 300 / 1000 700 / 1000 Other: Urine Color Straw Pale Yellow Yellow Urine Appearance Clear Clear Cloudy Urine Odor Normal Normal Normal Comment Void x1 in the toilet. Voiding Methods Toilet Toilet Data Completed and Pending Labs on day of discharge: Labs from last 24 hours 08/27/20 08/27/20 06:15 06:15 Plt Count 194 Sodium 137 Potassium 4.1 Chloride 102 Carbon Dioxide 28.2 Anion Gap 6.8 BUN 19 H Creatinine 0.7 Estimated GFR/1.73 m2 >= 60.00 Glucose 79 Calcium 8.5 [facility] Medical History (Updated 08/24/20 @ 22:56 by Robert Olson) Ductal carcinoma in situ (DCIS) of breast Hyperlipidemia Migraine headache SSS (sick sinus syndrome) Surgical History (Updated 08/24/20 @ 22:50 by Robert Olson) S/P bilateral mastectomy Status post placement of cardiac pacemaker Social History Smoking/Tobacco Use Status: Never Smoking risk assessment performed?: Yes Alcohol Intake: never Drug use: Never Substance use type: does not use Do you feel safe at home: Yes Do you feel safe in your relationship?: Yes History History 3 Para 1 Hx # Term Pregnancies 1 Multiple births Hx # Pregnancies Ectopic pregnancies AB induced Hx Number of Living Children 1 AB spontaneous 2
[2020-08-27] MEDS: Acetaminophen 325 MG TAB PO (09:06)
[2020-08-27] MEDS: traMADol 50 MG TAB PO (09:58)
--- NOTE | 2020-08-27 13:41 | PDOC.CMDIS ---
- If Service Date Differs Date of service: 08/27/20 Time of Service: 13:42 LACE Index Scoring Tool - Questions: Length of Stay (in days): 3 Acuity (Admit via E.D.?): Yes Comorbidities: Any Tumor E.D. Visits: 1 - Answers: Total Score: 9 Risk of Readmission: Low Risk Care Management Discharge Reason for Hospitalization: Closed fracture of T8 vertebra Discharge Plan: Eleanor will be discharged home with no new services. She will followup with her PCP and discharge plan of care and transport with a friend. Patient/Family Education Needs: Review of discharge instructions and follow up plan, limitations, Ask Me Three
--- NOTE | 2020-08-28 13:32 | PT.INDS ---
Date of service: 08/28/20 Time of Service: 13:32 PT Notes Visit Reasons: BACK PAIN; T8 FRACTURE Physical Therapy Inpatient Discharge Summary Date: 08/28/2020 Date of service: 08/25/2020 through 08/26/2020 This is a clinical summary of care provided on the duration of dates listed above. No charge was made in the completion of this documentation. Referring Doctor: Robert Olson MD PT Orders: PT CONSULT: Safety consult for D/C Precautions: Fall. Standard. Activity as tolerated. Patient Profile/Admitting Diagnosis: Eleanor is a 75-year-old female who presented to the ED on 08/24/2020 with back pain sustained from a mechanical fall while at work. She is diagnosed with subtle superior endplate fracture of the 8th thoracic vertebra with referral to physical therapy for safety assessment for discharge. PMHX: Medical History (Updated 08/24/20 @ 22:56 by Robert Olson) Ductal carcinoma in situ (DCIS) of breast Hyperlipidemia Migraine headache SSS (sick sinus syndrome) Surgical History (Updated 08/24/20 @ 22:50 by Robert Olson) S/P bilateral mastectomy Status post placement of cardiac pacemaker Social History/Home Situation: Lives alone in a private home in [place], [place] with one step to enter. She has another flight of steps to the second floor of her house where her bedroom and bathroom are. However, if she needs to she can stay in the guest room on the first floor where she also has a bathroom. 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 Equipment Owned/DME: None Subjective: NT. See most recent [employer] DESIGN[employer] notes. Objective: General Observation: NT. See most recent [employer]INE STRU[employer] DESIGNER notes. Mental Status: NT. See most recent [employer]INE STRU[employer] DESIGNER notes. Pain: NT. See most recent [employer]INE [employer] DES[employer]ER notes. ROM: Right Upper Extremity: Shoulder Flexion WFL. Shoulder abduction WFL. Elbow flexion WFL. Wrist flexion WFL. Opening and closing of hand WFL. Left Upper Extremity: Shoulder Flexion WFL. Shoulder abduction WFL. Elbow flexion WFL. Wrist flexion WFL. Opening and closing of hand WFL. Right Lower Extremity: Hip flexion WFL. Hip abduction WFL. Knee flexion WFL. Ankle dorsiflexion WFL. Ankle plantarflexion WFL. Left Lower Extremity: Hip flexion allows patient to sit on edge of bed but with pain complaint of 6/10. Hip abduction allows patient to slide right thigh onto the edge of bed about 45 degrees but with 6/10 pain in the right hip and lumbar area. Knee flexion WFL. Ankle dorsiflexion WFL. Ankle plantarflexion WFL. Strength: Right Upper Extremity: Shoulder flexors 5/5. Shoulder abductors 5/5. Elbow flexors 5/5. Elbow extensors 5/5. [employer] strong. Left Upper Extremity: Shoulder flexors 5/5. Shoulder abductors 5/5. Elbow flexors 5/5. Elbow extensors 5/5. [employer] strong. Right Lower Extremity: Hip flexors 5/5. Hip abductors 5/5. Knee flexors 5/5. Knee extensors 5/5. Ankle dorsiflexors 5/5. Ankle plantarflexors 5/5. Left Lower Extremity: Hip flexors 3-/5. Hip abductors 3-/5. Knee flexors 4-/5. Knee extensors 4-/5. Ankle dorsiflexors 5/5. Ankle plantarflexors 5/5. Sensation: Intact as to pain and pressure on bilateral lower extremities. Bed Mobility/Transfers: Rolling independent Supine to sit independent Sit to supine independent Sit to stand independent Stand to sit independent Bed to chair independent Chair to bed independent Gait: 100 feet on level surface ambulation using a walker with full weightbearing requiring supervision with TLSO. Stairs: Up-and-down three 4 inch steps two 6 inch steps while holding onto bilateral rails with step over step pattern, independently. Balance: Static Sitting: Normal Dynamic Sitting: Normal Static Standing: Fair Dynamic Standing: Fair Assessment: Eleanor requires the use of a front wheeled walker to increase tolerance to mobility ADL performance and reduce fall risk, pain in the left lumbar and hip area and due to recent fall, feelings of weakness, and increased risk for falls due to admitting diagnoses. 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 Has achieved good stabilization of back with use of TLSO. Patient continues to present with clinical signs and symptoms consistent with current/admitting diagnoses that have resulted to mobility limitations, gait instability, generalized weakness, and impairment of motor control as demonstrated by the following impairment level findings: 1. Decreased strength to right LE major muscle groups 2. Impaired sitting/standing balance 3. Impaired activity tolerance 4. Limitation of joint range of motion in right hip and trunk 5. Pain in L lumbar area Impairments are continuing to contribute to the following functional limitations: 1. Inability to safely ambulate without assistive device 2. Increase completion time for mobility ADL performance 3. Increased fall risk 4. Inability to negotiate steps alone safely Goals: Goals X1 week 1. Supine-Sit independent MET 2. Sit-Supine independent MET 3. Sit-Stand independent MET 4. Stand-Sit independent MET 5. Bed-Chair independent MET 6. Chair-Bed independent MET 7. Independent gait on level surface with use of front wheeled walker for at least 300 feet without report of pain nor dyspnea NOT MET 8. Independent stair negotiation while holding onto bilateral rails for at least 10 steps without report of pain nor dyspnea MET 9. Good static and dynamic standing balance/tolerance MET DISCHARGE RECOMMENDATIONS: Short-term rehab stay versus home health PT/OT. TREATMENT CODE/TIME: NC Thank you for the opportunity to participate in the care of this patient. Luli Gaviria PT, DPT, CLT [facility] [place], [place]
== END 2020-08-27 10:26 | disposition home or self-care (01) ==
LOC: ER 17:28 → MS 18:15
PROVIDERS: Admitting Provider Internal Medicine; Emergency Provider Physician Assistant; PCP Nurse Practitioner Family; Visit Provider Internal Medicine
DX: G89.11 Acute pain due to trauma (principal); S22.060A Wedge compression fracture of T7-T8 vertebra, initial encounter for closed fracture; W18.39XA Other fall on same level, initial encounter; Y99.0 Civilian activity done for income or pay; I49.5 Sick sinus syndrome; Z95.0 Presence of cardiac pacemaker; Z85.3 Personal history of malignant neoplasm of breast; E78.5 Hyperlipidemia, unspecified; G43.909 Migraine, unspecified, not intractable, without status migrainosus
CPT/HCPCS: 36415; 80048; 87635; 97162; 97530; 99225; 99238; 99285; 99306; J1650; 72128; 72131; 81003; 85025; 85049; 99217; 99284; G0378; J1885; J2405; J2430; J3490